=== PATIENT | male | born 1950 | race Asian ===

== ENCOUNTER 2021-07-24 22:26 | Emergency (ER) | payer MEDICARE ==
[~2021-07-24] VITALS: Ht 165.1 cm; Wt 62.7 kg
[2021-07-24] MEDS ORDERED: METF-1211 PO (22:34)
[2021-07-24] MEDS ORDERED: GLIP5 PO (22:35)
[2021-07-24 22:40] VITALS: BP 156/90
[2021-07-24] MEDS ORDERED: LIDOCAINE 1% 10 ML VIAL ID ONE (22:45)
== END 2021-07-24 23:20 | disposition home or self-care (01) ==
LOC: EMS 22:30
DX: T16.2XXA Foreign body in left ear, initial encounter (principal); W45.8XXA Other foreign body or object entering through skin, initial encounter; Y93.89 Activity, other specified; Y92.89 Other specified places as the place of occurrence of the external cause; Y99.8 Other external cause status
CPT/HCPCS: 69200; 99284; J3490